=== PATIENT | female | born 1970 | race African-American/Black ===

== ENCOUNTER → 2017-07-08 | Outpatient (CLI) | payer OTHER | END | disposition home or self-care (01) | LOC: MAMMO 12:35 | DX: Z12.31 Encounter for screening mammogram for malignant neoplasm of breast (principal) | CPT/HCPCS: 77063; 77067 ==

== ENCOUNTER → 2017-12-22 | Outpatient (CLI) | payer OTHER ==
--- NOTE | 2017-12-22 14:24 | RAD ---
Left breast ultrasound, 12/22/2017: History: Left breast lump The patient reports that there was an area of palpable concern at the 9:00 retroareolar region which has subsequently resolved. A targeted ultrasound exam of the left breast was performed at the 9:00 location. Heterogeneous fibroglandular shadows are present. No solid mass or unusual fluid collection is seen. IMPRESSION: The targeted ultrasound exam of the left breast reveals no abnormality. Clinical surveillance is suggested.
== END | disposition home or self-care (01) ==
LOC: US 13:49
PROVIDERS: ATTEND Nurse Practitioner Gerontology
DX: R92.8 Other abnormal and inconclusive findings on diagnostic imaging of breast (principal)
CPT/HCPCS: 76641